=== PATIENT | female | born 1990 | race Caucasian/White ===

== ENCOUNTER 2017-07-25 04:07 | Inpatient (IN) | payer MEDICAID ==
[2017-07-25] VITALS (11 sets, daily range): BP systolic 114–144; BP diastolic 70–94
[~2017-07-25] VITALS: Ht 172.7 cm; Wt 97.5 kg
[2017-07-25] MEDS: SODIUM CHLORIDE 0.9% 1,000 ML IV SCH ×2 (04:21→12:21)
[2017-07-25] MEDS ORDERED: BETAMETHASONE ACET (6MG/ML) 5ML VIAL ONE (04:23)
[2017-07-25] MEDS ORDERED: BETAMETHASONE ACET (6MG/ML) 5ML VIAL IM ONE (04:30)
[2017-07-25] MEDS ORDERED: SUCCINYLCHOLINE CHLORIDE 20 MG/ML 10ML VIAL IV ONE (04:41)
[2017-07-25 04:44] LABS: Eosinophils # (auto) 0.1 uL; Eosinophils % (auto) 0.6 % (0.0-7.0); Hemoglobin 9.3 g/dL (12.2-16.2); Lymphocytes # (auto) 3.3 uL; Nucleated Red Blood Cells % 0.1 %
[2017-07-25] MEDS ORDERED: ETOMIDATE (2MG/ML) 20ML VIAL IV ONE (04:44)
[2017-07-25] MEDS ORDERED: LACT. RINGERS/OXYTOCIN 20UNITS 1,000 ML IV ONE ×2 (04:44→04:45)
[2017-07-25] MEDS ORDERED: METHYLERGONOVINE MALEATE 0.2 MG/ML AMP IM ONE (04:44)
[2017-07-25] MEDS ORDERED: CARBOPROST TROMETHAMINE 250 MCG/1ML VIAL IM ONE (04:44)
[2017-07-25 04:46] LABS: Basophils # (auto) 0 uL; Basophils % (auto) 0.3 % (0.0-2.0); Hematocrit 28.4 % (36.0-46.0); Lymphocytes % (auto) 31.9 % (10.0-50.0); Mean Corpuscular Hemoglobin 26.7 pg (28.0-32.0); Mean Corpuscular Hgb Conc. 32.8 g/dL (32.0-36.0); Mean Corpuscular Volume 81.4 fL (80.0-100.0); Monocytes # (auto) 0.7 uL; Monocytes % (auto) 6.7 % (0.0-12.0); Neutrophils # (auto) 6.4 uL; Neutrophils % (auto) 60.5 % (37.0-80.0); Platelet Count (auto) 213 10^3/uL (140-450); Red Blood Cells 3.49 10^6/uL (4.0-5.20); Red Cell Distribution Width 13.8 % (11.8-14.3); White Blood Cell 10.5 10^3/uL (4.4-10.8)
[2017-07-25] MEDS ORDERED: OXYTOCIN 10UNIT/ML 1ML VIAL ONE ×2 (04:48→05:11)
[2017-07-25 04:57] LABS: BUN/Creatinine Ratio 10.3; INR 0.89 (0.9-1.15); Partial Thromboplastin Time 25.1 sec (23.78-33.04); Potassium 4.4 mmol/L (3.5-5.1); Prothrombin Time 9.6 sec (9.27-12.13)
[2017-07-25 04:59] LABS: Bilirubin, Total 0.2 mg/dL (0.2-1.0); Total Protein 5.4 g/dL (6.4-8.2)
[2017-07-25] MEDS ORDERED: ROCURONIUM 10MG/ML 10ML VIAL IV ONE (04:59)
[2017-07-25 05:11] LABS: Urine Bacteria FEW /hpf (None Seen); Urine Blood TRACE /uL (Negative); Urine Hyaline Cast FEW /lpf (0 - 2); Urine Mucus FEW (None Seen); Urine WBC 2 /hpf (0 - 5)
[2017-07-25] MEDS ORDERED: METOCLOPRAMIDE HCL 5MG/ml INJ 2ml VIAL ONE (05:11)
[2017-07-25 05:26] LABS: Alcohol, Urine < 3.0 mg/dL (0-5); Amphetamine Screen, Urine NEGATIVE (NEGATIVE); Barbiturate Scree,Urine NEGATIVE (NEGATIVE); Benzodiazephine Screen, Urine NEGATIVE (NEGATIVE); Cannabinoid Screen, Urine NEGATIVE (NEGATIVE); Cocaine Screen, Urine NEGATIVE (NEGATIVE); Opiate Scree,Urine NEGATIVE (NEGATIVE); Phencyclidine Screen, Urine NEGATIVE (NEGATIVE)
[2017-07-25] MEDS ORDERED: NEOSTIGMINE 1 MG/ML INJ (10mg/10ML VIAL) ONE (05:26)
[2017-07-25] MEDS ORDERED: GLYCOPYRROLATE 0.2 MG/ML 1ML VIAL ONE (05:26)
[2017-07-25] MEDS ORDERED: ONDANSETRON HCL 4 MG/2 ML VIAL IV ONE (05:30)
[2017-07-25] MEDS ORDERED: ePHEDrine SULFATE 50 MG/ML AMP IV PRN (05:30)
[2017-07-25] MEDS: LACT. RINGERS/OXYTOCIN 20UNITS 1,000 ML IV SCH ×2 (05:34→12:14)
[2017-07-25] MEDS: fentaNYL CITRATE 100 MCG/2 ML VL ONE ×4 (05:43→06:13)
[2017-07-25] MEDS ORDERED: fentaNYL CITRATE 100 MCG/2 ML VL ONE (05:45)
[2017-07-25] MEDS ORDERED: ceFAZolin 1GM/100ML 50 ML IV SCH (05:45)
[2017-07-25] MEDS ORDERED: KETOROLAC TROMETH 30 MG/ML 1ML VIAL IV PRN (05:45)
[2017-07-25] MEDS ORDERED: ACETAMINOPHEN 325 MG TAB PO ONE (07:58)
[2017-07-25] MEDS ORDERED: ACETAMINOPHEN 325 MG TAB PO PRN (08:00)
[2017-07-25] MEDS ORDERED: PROMETHAZINE HCL 25 MG/ML 1ML IV PRN (09:45)
[2017-07-25] MEDS: MEPERIDINE HCL (50 MG/ML) 1 ML VIAL IV PRN ×2 (09:45→13:40)
[2017-07-25] MEDS ORDERED: fentaNYL CITRATE 100 MCG/2 ML VL IV ONE (10:00)
[2017-07-25 10:21] LABS: Basophils # (auto) 0 uL; Basophils % (auto) 0.1 % (0.0-2.0); Eosinophils # (auto) 0 uL; Hemoglobin 12.6 g/dL (12.2-16.2); Mean Corpuscular Hemoglobin 26.9 pg (28.0-32.0); Red Blood Cells 4.67 10^6/uL (4.0-5.20); White Blood Cell 17.7 10^3/uL (4.4-10.8)
[2017-07-25 10:23] LABS: Hematocrit 38.3 % (36.0-46.0); Lymphocytes # (auto) 0.9 uL; Lymphocytes % (auto) 4.8 % (10.0-50.0); Mean Corpuscular Hgb Conc. 32.8 g/dL (32.0-36.0); Monocytes # (auto) 0.3 uL; Monocytes % (auto) 1.5 % (0.0-12.0); Neutrophils # (auto) 16.5 uL; Neutrophils % (auto) 93.6 % (37.0-80.0); Nucleated Red Blood Cells % 0.1 %; Platelet Count (auto) 199 10^3/uL (140-450)
[2017-07-25] MEDS: LACTATED RINGER'S 1,000 ML IV SCH (16:00)
[2017-07-25] MEDS: ceFAZolin 1GM/100ML 50 ML IV SCH (16:00)
[2017-07-25 17:25] LABS: Basophils # (auto) 0 uL; Basophils % (auto) 0.2 % (0.0-2.0); Eosinophils # (auto) 0 uL; Hematocrit 35.8 % (36.0-46.0); Hemoglobin 12.1 g/dL (12.2-16.2); Lymphocytes # (auto) 1.5 uL; Lymphocytes % (auto) 8.5 % (10.0-50.0); Mean Corpuscular Hemoglobin 27.4 pg (28.0-32.0); Mean Corpuscular Hgb Conc. 33.9 g/dL (32.0-36.0); Mean Corpuscular Volume 80.7 fL (80.0-100.0); Monocytes # (auto) 1.1 uL; Monocytes % (auto) 6.2 % (0.0-12.0); Neutrophils % (auto) 85.1 % (37.0-80.0); Nucleated Red Blood Cells % 0.1 %; Platelet Count (auto) 202 10^3/uL (140-450); Red Blood Cells 4.44 10^6/uL (4.0-5.20); Red Cell Distribution Width 15.6 % (11.8-14.3); White Blood Cell 17.6 10^3/uL (4.4-10.8)
[2017-07-25] MEDS ORDERED: FUROSEMIDE 20 MG/2 ML VIAL IV ONE (17:30)
[2017-07-26] VITALS (8 sets, daily range): BP systolic 115–136; BP diastolic 64–88
[2017-07-26] MEDS: ceFAZolin 1GM/100ML 50 ML IV SCH ×4 (00:25→23:40)
[2017-07-26] MEDS: LACTATED RINGER'S 1,000 ML IV SCH ×2 (00:30→08:01)
[2017-07-26 07:07] LABS: RPR Non Reactive (Non Reactive)
[2017-07-26 10:23] LABS: Basophils # (auto) 0 uL; Eosinophils # (auto) 0 uL; Hematocrit 37.1 % (36.0-46.0); Mean Corpuscular Hemoglobin 26.9 pg (28.0-32.0); Monocytes # (auto) 0.9 uL
[2017-07-26 10:24] LABS: Basophils % (auto) 0.2 % (0.0-2.0); Eosinophils % (auto) 0.2 % (0.0-7.0); Hemoglobin 12.3 g/dL (12.2-16.2); Lymphocytes # (auto) 2.8 uL; Lymphocytes % (auto) 20.7 % (10.0-50.0); Mean Corpuscular Volume 81.3 fL (80.0-100.0); Neutrophils # (auto) 9.6 uL; Neutrophils % (auto) 71.9 % (37.0-80.0); Platelet Count (auto) 220 10^3/uL (140-450); Red Blood Cells 4.56 10^6/uL (4.0-5.20); Red Cell Distribution Width 15.4 % (11.8-14.3); White Blood Cell 13.3 10^3/uL (4.4-10.8)
[2017-07-26] MEDS ORDERED: HYDROcodone-ACET 5/325MG TAB PO PRN ×2 (10:30)
[2017-07-26] MEDS: DOCUSATE SOD 100 MG CAP PO SCH ×2 (12:15→22:08)
[2017-07-26] MEDS ORDERED: IBUPROFEN 800 MG TAB PO ONE (12:25)
[2017-07-26] MEDS ORDERED: IBUPROFEN 800 MG TAB PO PRN (12:30)
[2017-07-26 13:09] LABS: Rubella Antibodies, IgG <0.90 index (Immune >0.99)
[2017-07-26] MEDS ORDERED: ALUM & MAG HYDROX-SIMETH LIQ(MAALOX) 30 ML PO PRN (20:00)
[2017-07-27] MEDS ORDERED: TETANUS-DIPTH-ACEL PERTUSSIS 0.5ML SYRG IM ONE (00:30)
[2017-07-27] MEDS ORDERED: PREN-96 PO (01:43)
[2017-07-27] MEDS ORDERED: METF-370 PO (01:43)
[2017-07-27] MEDS ORDERED: IBUPROFEN 800 MG TAB PO ONE (02:38)
[2017-07-27 03:00] VITALS: BP 133/84
[2017-07-27 06:30] VITALS: BP 130/85
== END 2017-07-27 09:00 | disposition home or self-care (01) | DRG 540 ==
LOC: OBSVTOIN 04:07 → LDRP 04:07
PROVIDERS: ADMIT Obstetrics & Gynecology; ATTEND Obstetrics & Gynecology
PROC: 30233L1 Transfusion of Nonautologous Fresh Plasma into Peripheral Vein, Percutaneous Approach (ICD-10-PCS; 2017-07-25)
PROC: 30233K1 Transfusion of Nonautologous Frozen Plasma into Peripheral Vein, Percutaneous Approach (ICD-10-PCS; 2017-07-25)
PROC: 10D00Z1 Extraction of Products of Conception, Low, Open Approach (ICD-10-PCS; principal; 2017-07-25 04:44)
DX: O60.14X0 Preterm labor third trimester with preterm delivery third trimester, not applicable or unspecified (principal); O45.93 Premature separation of placenta, unspecified, third trimester; O76 Abnormality in fetal heart rate and rhythm complicating labor and delivery; O24.429 Gestational diabetes mellitus in childbirth, unspecified control; O99.62 Diseases of the digestive system complicating childbirth; K21.9 Gastro-esophageal reflux disease without esophagitis; Z37.0 Single live birth; Z3A.35 35 weeks gestation of pregnancy
CPT/HCPCS: 36415; 36430; 59025; 76805; 80053; 80307; 81001; 81002; 82948; 82962; 85025; 85362; 85384; 85610; 85730; 86592; 86762; 86850; 86900; 86901; 86920; 87340; 94760; 96366; 96372; J0330; J0690; J1885; J2405; J2590